=== PATIENT | female | born 1980 | race Asian ===

== ENCOUNTER 2018-08-31 18:35 | Emergency (ER) | payer OTHER ==
[2018-08-31 18:50] VITALS: TEMP 8.2; BMI 26.4
[2018-08-31 21:26] LABS: BASO % 1.2 % (0-2.0); HEMATOCRIT 43.1 % (32.4-45.2); HEMOGLOBIN 14.4 GM/dL (10.7-15.3); LYMPH % 30.2 % (8-40); MCH 28.5 pg (25.7-33.7); MCHC 33.3 g/dl (32.0-36.0); MEAN CELL VOLUME 85.6 fl (80-96); MEAN PLT VOLUME 7.7 fl (7.5-11.1); MONO % 7.2 % (3.8-10.2); NEUT % 57.4 % (42.8-82.8); PLATELET COUNT 314 K/MM3 (134-434); RBC 5.04 M/mm3 (3.60-5.2); RDW 14.2 % (11.6-15.6)
[2018-08-31 21:31] LABS: URINE APPEARANCE CLOUDY; URINE BILIRUBIN NEGATIVE (NEGATIVE); URINE COLOR YELLOW; URINE GLUCOSE (UA) TRACE (NEGATIVE); URINE KETONE NEGATIVE (NEGATIVE); URINE LEUK ESTERASE NEGATIVE (NEGATIVE); URINE NITRITE NEGATIVE (NEGATIVE); URINE PROTEIN NEGATIVE (NEGATIVE); URINE UROBILINOGEN 0.2 mg/dL (0.2-1.0)
[2018-08-31 22:09] LABS: ALK PHOS 79 U/L (45-117); ANION GAP 7 MMOL/L (8-16); BILIRUBIN,TOTAL 0.5 mg/dL (0.2-1); BLOOD UREA NITROGEN 14 mg/dL (7-18); CALCIUM 9.3 mg/dL (8.5-10.1); CHLORIDE 105 mmol/L (98-107); CO2 27 mmol/L (21-32); CREATININE 0.7 mg/dL (0.55-1.3); GLUCOSE,RANDOM 123 mg/dL (74-106); POTASSIUM 4.5 mmol/L (3.5-5.1); SGOT/AST 21 U/L (15-37); SGPT/ALT 24 U/L (13-61); SODIUM 139 mmol/L (136-145); TOT PROT 7.6 g/dl (6.4-8.2)
[2018-08-31] MEDS ORDERED: METHOCARBAMOL 500 MG TABLET PO ONE (23:14)
[2018-08-31] MEDS ORDERED: METHOCARBAMOL 500 MG TABLET ONE (23:29)
[2018-09-01 00:05] VITALS: BP 135/88; PULSE 69
--- NOTE | 2018-09-01 00:14 | PDOC ---
Documentation entered by Kim Shepherd SCRIBE, acting as scribe for Jennifer Asher MD. Jennifer Asher MD: This documentation has been prepared by the Joao dsouza Collisia, SCRIBE, under my direction and personally reviewed by me in its entirety. I confirm that the documentation accurately reflects all work, treatment, procedures, and medical decision making performed by me. History of Present Illness - General Chief Complaint: Pain, Acute Stated Complaint: PAIN LLQ Time Seen by Provider: 08/31/18 20:01 History Source: Patient Exam Limitations: No Limitations - History of Present Illness Initial Comments: 08/31/18 21:15 The patient is a 38 year old female with a significant past medical history of diabetes and migraines who presents to the emergency department with left lower quadrant pain for 1 week. The patient states that her LLQ pain is a sharp spasm pain. She states that she first felt this pain about 1 week ago after working out/stretching at the gym. The patient states that she felt some soreness the next day but presumed that to be a normal after effect of her workout but when the llq pain persisted she was more concerned. She states that it feels like more of a discomfort than a pain. She denies any pain with walking, chest pain, shortness of breath, fever, chills, nausea, vomiting, diarrhea, or possible . The patient states that her lmp was about 1 week ago . she denies any other complaints. Past History - Past Medical History Allergies/Adverse Reactions: Allergies Allergy/AdvReac Type Severity Reaction Status Date / Time No Known Drug Allergies Allergy Unknown Verified 02/28/13 19:04 kiwi Allergy Itching Verified 02/28/13 19:04 pineapple [Pineapple] Allergy Nausea Verified 02/28/13 19:04 SEAFOOD Allergy Hives Uncoded 02/28/13 19:04 Home Medications: Ambulatory Orders Hydrocodone Bit/Acetaminophen [Vicodin 5-300mg Tablet] 1 tab PO Q6H PRN #12 tablet 02/28/13 Ranitidine HCl [Zantac 75] 150 mg PO 02/28/13 Methocarbamol [Robaxin -] 500 mg PO TID #21 tablet 08/31/18 Anemia: No Asthma: No Cancer: No Cardiac Disorders: No CVA: No COPD: No CHF: No Dementia: No Diabetes: Yes (MEDS) GI Disorders: Yes (GASTRITIS) Disorders: No HTN: No Hypercholesterolemia: No Kidney Stones: No Liver Disease: No Seizures: No Thyroid Disease: No - Reproductive History PID: No - Immunization History Immunization Up to Date: Yes - Suicide/Smoking/Psychosocial Hx Smoking Status: Yes Smoking History: Never smoked Have you smoked in the past 12 months: Yes Number of Cigarettes Smoked Daily: 0 'Breaking Loose' booklet given: 04/30/12 Hx Alcohol Use: No Drug/Substance Use Hx: No Substance Use Type: Prescribed, Tranquilizers Hx Substance Use Treatment: Yes Review of Systems - Review of Systems Able to Perform ROS?: Yes Comments:: 08/31/18 21:15 GENERAL/CONSTITUTIONAL: No fever or chills. No weakness. HEAD, EYES, EARS, NOSE AND THROAT: No change in vision. No ear pain or discharge. No sore throat. CARDIOVASCULAR: No chest pain or shortness of breath. RESPIRATORY: No cough, wheezing, or hemoptysis. GASTROINTESTINAL: (+)LLQ pain. No nausea, vomiting, diarrhea or constipation. GENITOURINARY: No dysuria, frequency, or change in urination. MUSCULOSKELETAL: No joint or muscle swelling or pain. No neck or back pain. SKIN: No rash NEUROLOGIC: No headache, vertigo, loss of consciousness, or change in strength/ sensation. ENDOCRINE: No increased thirst. No abnormal weight change. HEMATOLOGIC/LYMPHATIC: No anemia, easy bleeding, or history of blood clots. ALLERGIC/IMMUNOLOGIC: No hives or skin allergy. *Physical Exam - Vital Signs Last Vital Signs Temp Pulse Resp BP Pulse Ox 8.2 F L 83 18 161/89 99 08/31/18 18:48 08/31/18 18:48 08/31/18 18:48 08/31/18 18:48 08/31/18 18:48 - Physical Exam Comments: 08/31/18 21:16 GENERAL: Awake, alert, and fully oriented, in no acute distress HEAD: No signs of trauma EYES: PERRLA, EOMI, sclera anicteric, conjunctiva clear ENT: Auricles normal inspection, hearing grossly normal, nares patent, oropharynx clear without exudates. Moist mucosa NECK: Normal ROM, supple, no lymphadenopathy, JVD, or masses LUNGS: Breath sounds equal, clear to auscultation bilaterally. No wheezes, and no crackles HEART: Regular rate and rhythm, normal S1 and S2, no murmurs, rubs or gallops ABDOMEN: Soft, nontender, normoactive bowel sounds. No guarding, no rebound. No masses EXTREMITIES: Normal range of motion, no edema. No clubbing or cyanosis. No cords, erythema, or tenderness NEUROLOGICAL: Cranial nerves II through XII grossly intact. Normal speech, normal gait SKIN: Warm, Dry, normal turgor, no rashes or lesions noted. ED Treatment Course - LABORATORY CBC & Chemistry Diagram: 08/31/18 21:10 08/31/18 21:10 - ADDITIONAL ORDERS Additional order review: Laboratory Results 08/31/18 08/31/18 08/31/18 21:10 21:10 21:10 Sodium 139 Potassium 4.5 Chloride 105 Carbon Dioxide 27 Anion Gap 7 L BUN 14 Creatinine 0.7 Creat Clearance w eGFR 94.16 Random Glucose 123 H Calcium 9.3 Total Bilirubin 0.5 AST 21 ALT 24 Alkaline Phosphatase 79 Total Protein 7.6 Albumin 4.0 Urine Color Yellow Urine Appearance Cloudy Urine pH 7.0 D Ur Specific [place] 1.018 Urine Protein Negative Urine Glucose (UA) Trace Urine Ketones Negative Urine Blood Negative Urine Nitrite Negative Urine Bilirubin Negative Urine Urobilinogen 0.2 Ur Leukocyte Esterase Negative Urine HCG, Qual Negative 08/31/18 21:10 RBC 5.04 MCV 85.6 MCHC 33.3 RDW 14.2 D MPV 7.7 Neutrophils % 57.4 D Lymphocytes % 30.2 D Monocytes % 7.2 Eosinophils % 4.0 D Basophils % 1.2 - RADIOLOGY Radiology Studies Ordered: Category Date Time Status ABDOMEN & PELVIS CT W/O CONTR [CT] Stat CT Scan 08/31/18 21:38 Taken TRANSVAGINAL ULTRASOUND US [US] Stat Ultrasound 08/31/18 20:16 Completed *DC/Admit/Observation/Transfer Diagnosis at time of Disposition: Abdominal pain, Abdominal muscle strain - Discharge Dispostion Disposition: HOME Condition at time of disposition: Stable Decision to Admit order: No - Prescriptions Prescriptions: Methocarbamol [Robaxin -] 500 mg PO TID #21 tablet - Referrals Referrals: Carlton Bhatti [Primary Care Provider] - - Patient Instructions Printed Discharge Instructions: Groin Strain, Abdominal Muscle Strain - Post Discharge Activity
== END 2018-08-31 23:50 | disposition home or self-care (01) ==
LOC: JER 18:35
DX: S39.011A Strain of muscle, fascia and tendon of abdomen, initial encounter (principal); X50.9XXA Other and unspecified overexertion or strenuous movements or postures, initial encounter; Y93.B9 Activity, other involving muscle strengthening exercises; Y92.39 Other specified sports and athletic area as the place of occurrence of the external cause; Y99.8 Other external cause status
CPT/HCPCS: 36415; 74176-TC; 76830-TC; 80053; 81003; 84703; 85025; 99282-25

== ENCOUNTER 2019-05-31 15:42 | Emergency (ER) | payer OTHER ==
[2019-05-31 15:53] VITALS: BP 125/85; PULSE 107; TEMP 99.2; BMI 58.3
--- NOTE | 2019-05-31 15:53 | PDOC ---
Rapid Medical Evaluation Chief Complaint: Cold Symptoms Time Seen by Provider: 05/31/19 15:49 Medical Evaluation: Allergies Allergy/AdvReac Type Severity Reaction Status Date / Time No Known Drug Allergies Allergy Unknown Verified 02/28/13 19:04 kiwi Allergy Itching Verified 02/28/13 19:04 pineapple [Pineapple] Allergy Nausea Verified 02/28/13 19:04 SEAFOOD Allergy Hives Uncoded 02/28/13 19:04 05/31/19 15:49 Pt c/o: cough, nasal congestion Pt on brief exam: vss, lcta Pt ordered for: none pt to proceed to the ED Discharge Disposition - Diagnosis Cough - Referrals - Patient Instructions - Post Discharge Activity
[2019-05-31] MEDS ORDERED: ALBUTEROL SO4 2.5/IPRATROPIUM 0.5 INH SOL 3 ML VIAL.NEB. NEB ONE ×2 (16:58→17:01)
[2019-05-31] MEDS ORDERED: IBUPROFEN 600 MG TABLET (FP) PO ONE ×2 (16:58→17:01)
--- NOTE | 2019-05-31 17:07 | PDOC ---
History of Present Illness - General Stated Complaint: COUGH Time Seen by Provider: 05/31/19 15:49 History Source: Patient Exam Limitations: No Limitations Past History - Travel Traveled outside of the country in the last 30 days: No Close contact w/someone who was outside of country & ill: No - Past Medical History Allergies/Adverse Reactions: Allergies Allergy/AdvReac Type Severity Reaction Status Date / Time No Known Drug Allergies Allergy Unknown Verified 05/31/19 15:54 kiwi Allergy Itching Verified 05/31/19 15:54 pineapple [Pineapple] Allergy Nausea Verified 05/31/19 15:54 SEAFOOD Allergy Hives Uncoded 05/31/19 15:54 Home Medications: Ambulatory Orders Metformin HCl [Glucophage] 500 mg PO DAILY 05/31/19 Albuterol Sulfate Inhaler - [Ventolin HFA Inhaler -] 1 - 2 inh PO Q4H PRN #1 inhaler 06/01/19 Ibuprofen 600 mg PO QID PRN #20 tablet 06/01/19 Anemia: No Asthma: No Cancer: No Cardiac Disorders: No CVA: No COPD: No CHF: No Dementia: No Diabetes: Yes (MEDS) GI Disorders: Yes (GASTRITIS) Disorders: No HTN: No Hypercholesterolemia: No Kidney Stones: No Liver Disease: No Seizures: No Thyroid Disease: No - Reproductive History PID: No - Immunization History Immunization Up to Date: Yes - Psycho Social/Smoking Cessation Hx Smoking Status: Yes Smoking History: Never smoked Have you smoked in the past 12 months: Yes Number of Cigarettes Smoked Daily: 0 'Breaking Loose' booklet given: 04/30/12 Hx Alcohol Use: No Drug/Substance Use Hx: No Substance Use Type: Prescribed, Tranquilizers Hx Substance Use Treatment: Yes Review of Systems - Review of Systems Able to Perform ROS?: Yes Comments:: 05/31/19 18:14 CONSTITUTIONAL: Present: Fever, chills, body aches Absent: diaphoresis, generalized weakness, malaise, loss of appetite HEENT: Present: rhinorrhea, nasal congestion, throat pain. Absent: difficulty swallowing, mouth swelling, ear pain, eye pain, visual Changes CARDIOVASCULAR: Absent: chest pain, loss of consciousness, palpitations, irregular heart rate, peripheral edema RESPIRATORY: Present: Cough Absent: shortness of breath, dyspnea with exertion, orthopnea, wheezing, stridor, hemoptysis GASTROINTESTINAL: Absent: abdominal pain, abdominal distension, nausea, vomiting, diarrhea, constipation, melena, hematochezia SKIN: Absent: rash, itching, pallor NEUROLOGIC: Present: headache Absent: focal weakness or paresthesias, dizziness, unsteady gait, seizure, mental status changes, bladder or bowel incontinence Is the patient limited Divehi proficient: No *Physical Exam - Vital Signs Last Vital Signs Temp Pulse Resp BP Pulse Ox 99.2 F 107 H 18 125/85 99 05/31/19 15:50 05/31/19 15:50 05/31/19 15:50 05/31/19 15:50 05/31/19 15:50 - Physical Exam 05/31/19 18:14 GENERAL: Well developed, well nourished. Awake and alert. No acute distress. HEENT: Normocephalic, atraumatic. PERRLA, EOMI. No conjunctival pallor. Sclera are non- icteric. Moist mucous membranes. Oropharynx is clear. NECK: Supple. Full ROM. No thyromegaly. No lymphadenopathy. CARDIOVASCULAR: Regular rate and rhythm. No murmurs, rubs, or gallops. Distal pulses are 2+ and symmetric. PULMONARY: No evidence of respiratory distress. Lungs clear to auscultation bilaterally. No wheezing, rales or rhonchi. MUSCULOSKELETAL Normal range of motion at all joints. No bony deformities or tenderness. No CVA tenderness. EXTREMITIES: No cyanosis. No clubbing. No edema. No calf tenderness. SKIN: Warm and dry. Normal capillary refill. No rashes. No jaundice. NEUROLOGICAL: Alert, awake, appropriate. Cranial nerves 2-12 intact. No deficits to light touch and temperature in face, upper extremities and lower extremities. No motor deficits in the in face, upper extremities and lower extremities. Normoreflexic in the upper and lower extremities. Normal speech. Toes are down- going bilaterally. Gait is normal without ataxia. PSYCHIATRIC: Cooperative. Good eye contact. Appropriate mood and affect. Medical Decision Making - Medical Decision Making 05/31/19 18:14 The patient is a 39-year-old female no past medical history who presents the ER for 1 week of flulike symptoms. She states she been taking symptomatic relief at home however she still has a cough and sore throat. She is concerned she may have strep throat. She has not taken any Tylenol or Motrin today. A/P: Flulike symptoms On exam lungs are clear to auscultation bilateral with no wheezes rales or rhonchi, there is unremarkable. Rapid strep is negative Ibuprofen and DuoNeb's given for the cough with relief of symptoms. Discharge home with supportive therapy and primary care follow-up I discussed the physical exam findings, ancillary test results and final diagnoses with the patient. I answered all of the patient's questions. The patient was satisfied with the care received and felt comfortable with the discharge plan and treatment plan. The Patient agrees to follow up with the primary care physician/specialist within 24-72 hours. Return precautions were given. Discharge - Discharge Information Problems reviewed: Yes Clinical Impression/Diagnosis: Cough, Flu-like symptoms Condition: Stable Disposition: HOME - Admission No - Additional Discharge Information Prescriptions: Albuterol Sulfate Inhaler - [Ventolin HFA Inhaler -] 1 - 2 inh PO Q4H PRN #1 inhaler PRN Reason: Cough Ibuprofen 600 mg PO QID PRN #20 tablet PRN Reason: Pain - Follow up/Referral Referrals: Carlton Bhatti [Primary Care Provider] - - Patient Discharge Instructions Patient Printed Discharge Instructions: DI for Cough -- Adult Additional Instructions: You were evaluated for your cough and sore throat Your strep test was negative today You most likely had the flu. Your symptoms will last for approximately a week to 10 days. You may take Motrin 600mg every 6 hours as needed for pain or fever. You may take Robitussin for cough as directed by the box. This is over-the- counter. Please use the albuterol inhaler every 4 hours as needed for shortness of breath. Follow-up with your primary care doctor this week. Return to the ER for difficulty breathing, fevers, or if you have any changes in your symptoms. - Post Discharge Activity
== END 2019-05-31 18:46 | disposition home or self-care (01) ==
LOC: JERFT 15:42
PROC: 3E0F7GC Introduction of Other Therapeutic Substance into Respiratory Tract, Via Natural or Artificial Opening (ICD-10-PCS; principal; 2019-05-31)
DX: J11.1 Influenza due to unidentified influenza virus with other respiratory manifestations (principal); E11.9 Type 2 diabetes mellitus without complications; Z79.84 Long term (current) use of oral hypoglycemic drugs; Z91.013 Allergy to seafood; Z91.018 Allergy to other foods
CPT/HCPCS: 87070; 87880; 94640; 99282-25

== ENCOUNTER 2019-10-29 23:04 | Emergency (ER) | payer OTHER ==
[2019-10-29 23:16] VITALS: TEMP 98.3; BMI 26.4
[2019-10-30 00:03] LABS: BASO % 0.9 % (0-2.0); EOS % 1.8 % (0-4.5); HEMATOCRIT 42.4 % (32.4-45.2); HEMOGLOBIN 14.1 GM/dL (10.7-15.3); LYMPH % 28.5 % (8-40); MCH 28.9 pg (25.7-33.7); MCHC 33.3 g/dl (32.0-36.0); MEAN CELL VOLUME 86.8 fl (80-96); MEAN PLT VOLUME 8.2 fl (7.5-11.1); MONO % 6.8 % (3.8-10.2); PLATELET COUNT 345 K/MM3 (134-434); RBC 4.89 M/mm3 (3.60-5.2); RDW 13.4 % (11.6-15.6)
[2019-10-30 00:40] LABS: ALBUMIN 3.9 g/dl (3.4-5.0); ALK PHOS 85 U/L (45-117); ANION GAP 8 MMOL/L (8-16); BILIRUBIN,TOTAL 0.5 mg/dL (0.2-1); BLOOD UREA NITROGEN 9.4 mg/dL (7-18); CALCIUM 9.4 mg/dL (8.5-10.1); CHLORIDE 105 mmol/L (98-107); CO2 28 mmol/L (21-32); CREATININE 0.8 mg/dL (0.55-1.3); GLUCOSE,RANDOM 147 mg/dL (74-106); MAGNESIUM 1.9 mg/dL (1.8-2.4); POTASSIUM 3.2 mmol/L (3.5-5.1); SGOT/AST 13 U/L (15-37); SGPT/ALT 19 U/L (13-61); SODIUM 141 mmol/L (136-145); TOT PROT 7.2 g/dl (6.4-8.2)
[2019-10-30 00:41] LABS: INR 0.83 (0.83-1.09); PROTHROMBIN TIME (PATIENT) 9.8 SEC (9.7-13.0)
[2019-10-30 00:44] LABS: ACTIVATED PTT 35.1 SECONDS (25.2-36.5)
[2019-10-30 02:17] VITALS: BP 150/78; PULSE 80
[2019-10-30 02:47] LABS: ANISOCYTOSIS 0; HELMET CELLS 0; HOWELL-JOLLY BODIES 0; MACROCYTOSIS 0; OVALOCYTE 0; PLATELET ESTIMATE NORMAL; ROULEAU 0; SICKELED CELLS 0; TARGET CELLS 0; TEAR DROP CELLS 0; TOXIC GRANULATION 0
== END 2019-10-30 02:17 | disposition left against medical advice (07) ==
LOC: JER 23:04
DX: R20.2 Paresthesia of skin (principal); R07.9 Chest pain, unspecified
CPT/HCPCS: 36415; 70450-TC; 71046-TC-FY; 80053; 82550; 83735; 84484; 85025; 85379; 85610; 85730; 93005; 93010; 99285-25